=== PATIENT | male | born 1990 | race Caucasian/White ===

== ENCOUNTER 2019-06-01 16:53 | Emergency (ER) | payer OTHER, SELFPAY ==
[2019-06-01 17:03] VITALS: BP 137/71; PULSE 98; RESP 26; TEMP 36.9; O2SAT 100; BMI 24.9
--- NOTE | 2019-06-01 17:48 | PC.NURSE ---
Pt lying on stretcher with blanket, resting with eyes closed, chest rise and fall noted.
--- NOTE | 2019-06-01 19:20 | ED.OVERDOSE ---
HPI - Overdose General Chief Complaint: Toxicology Problem Stated Complaint: bad reaction to magic mushrooms Time Seen by Provider: 06/01/19 18:03 Source: patient Mode of arrival: Ambulatory Limitations: no limitations History of Present Illness HPI Narrative: 28-year-old male smoker with noncontributory medical history presents with a chief complaint of feeling bad and anxious after taking his 1st dose ever of hallucinogenic mushrooms. He states he consumed approximately 12-13 stems and caps at about 1:00pm. He denies suicidal or homicidal ideation. He has no fever chills, no chest pain, shortness of breath or abdominal pain. MD complaint: accidental overdose Onset (ago): hour(s) Context: Accidental Overdose: wanted to get high Treatments Prior to Arrival: none Review of Systems Constitutional Constitutional: Denies chills, Reports difficulty sleeping, Denies fatigue, Denies fever(s), Denies frequent falls, Denies lethargy and Denies weakness Eyes Eyes: Denies change in vision, Denies eye discharge, Denies irritation and Denies loss of vision ENT Ears, Nose, Mouth, and Throat: Denies change in voice, Denies dizziness, Denies neck pain, Denies sore throat and Denies throat swelling Cardiovascular Cardiovascular: Denies chest pain, Denies irregular heart rhythm, Denies lightheadedness, Denies palpitations, Denies dyspnea, Denies dyspnea on exertion and Denies orthopnea Respiratory Respiratory: Denies cough, Denies dyspnea, Denies dyspnea on exertion and Denies wheezing Gastrointestinal Gastrointestinal: Denies abdominal pain, Denies change in bowel habits, Denies diarrhea, Denies nausea and Denies vomiting Genitourinary Genitourinary: Denies hematuria, Denies flank pain, Denies urinary incontinence and Denies urinary urgency Musculoskeletal Musculoskeletal: Denies back pain, Denies muscle weakness, Denies neck pain, Denies numbness and Denies tingling Integumentary/Breasts Skin/Breast: Denies pruritus, Denies erythema, Denies rash and Denies wounds Neurologic Neurologic: Reports behavioral changes, Denies confusion, Denies dizziness, Denies frequent falls, Denies loss of vision, Denies numbness, Denies tingling and Denies weakness Psychiatric Psychiatric: Reports anxiety, Reports behavioral changes, Denies confusion, Denies depression, Denies homicidal ideation and Denies suicidal ideation Endocrine Endocrine: Denies fatigue, Denies flushing and Denies palpitations Hematologic/Lymphatic Hematologic/Lymphatic: Denies easy bruising Allergic/Immunologic Allergic/Immunologic: Denies urticaria, Denies throat swelling and Denies wheezing Patient History Social History Smoking Status: Current every day smoker Smoking Status: Current every day smoker tobacco type: vaping alcohol intake frequency: other Substance Use Type: marijuana and hallucinogens Exam Narrative Exam Narrative: GENERAL: [28] year old patient appears stated age. Well-nourished, well-developed patient, in mild distress. HEAD: Atraumatic. Normocephalic. EYES: Pupils equal round and reactive, dilated. Extraocular motions intact. No scleral icterus. No injection or drainage. ENT: Nose without bleeding, purulent drainage. Throat without erythema, tonsillar hypertrophy or exudate. Airway patent. NECK: Trachea midline. Non tender CARDIOVASCULAR: Regular rate and rhythm without murmurs, gallops, or rubs. RESPIRATORY: Clear to auscultation. Breath sounds equal bilaterally. No wheezes, rales, or rhonchi. GASTROINTESTINAL: Abdomen soft, non-tender, nondistended. EXTREMITIES: No edema or joint tenderness. BACK: Nontender without deformity or crepitance. No flank tenderness. NEURO: AOx3. SKIN: No rash or erythema of visible areas Initial Vital Signs Initial Vital Signs: Vital Signs Temperature 98.4 F 06/01/19 17:03 Pulse Rate 98 H 06/01/19 17:03 Respiratory Rate 26 H 06/01/19 17:03 Blood Pressure 137/71 06/01/19 17:03 Pulse Oximetry 100 06/01/19 17:03 Course Course Course Narrative: patient feeling much better and wants to go home. His roommate is coming to get him. He no longer feels bad, no longer seeing any trailers or hallucinations. Orders Ordered: ED Orders 06/01/19 17:06 EKG-12 Lead Stat Vital Signs Vital signs: Vital Signs - 8 hr 06/01/19 17:03 Temperature 98.4 F Pulse Rate 98 H Respiratory Rate 26 H Blood Pressure 137/71 Pulse Oximetry 100 Discharge Plan Departure Patient Disposition: Home Clinical Impression: Hallucinogenic mushrooms use disorder, mild Instructions: DI for Drug Abuse and Drug Addiction Activity Restrictions/Additional Instructions: *You have been diagnosed with [illicit drug use ] *What to do: *Follow up with your primary care provider in 2-3 days, call for an appointment. Let them know you were seen in the Emergency Department and that we ask that you be seen in follow up *Return to ER if you should have any new, worsening or concerning symptoms [facility]errals: [facility] [Outside]
--- NOTE | 2019-06-01 19:23 | PC.NURSE ---
pt's roomate Elizabeth Pineda is going to pick patient up.
== END 2019-06-01 19:24 | disposition home or self-care (01) ==
PROVIDERS: Emergency Provider Emergency Medicine
DX: F16.10 Hallucinogen abuse, uncomplicated (principal)
CPT/HCPCS: 93005; 99282; 99283